=== PATIENT | male | born 1945 | race Caucasian/White ===

== ENCOUNTER 2017-08-05 09:57 | Emergency (ER) | payer MEDICARE, BC | END 2017-08-05 10:22 | disposition home or self-care (01) | LOC: SCSER 09:57 | DX: J01.90 Acute sinusitis, unspecified (principal); E78.5 Hyperlipidemia, unspecified; I10 Essential (primary) hypertension; Z79.899 Other long term (current) drug therapy | CPT/HCPCS: 99283 ==

== ENCOUNTER 2017-08-07 14:16 | Emergency (ER) | payer MEDICARE, BC ==
--- NOTE | 2017-08-07 14:59 | RAD ---
CHEST 2 VIEWS: Date: 08/07/17 HISTORY: Cough. COMPARISON: None. FINDINGS: Lungs are clear. No pneumothorax or effusion. Cardiac silhouette and mediastinal contours within norm al limits. IMPRESSION: No acute intrathoracic abnormality. POS: [facility]
[2017-08-07] MEDS ORDERED: Ibuprofen 200 MG TAB ONE (15:05)
[2017-08-07] MEDS ORDERED: Acetaminophen 500 MG TAB ONE (15:05)
== END 2017-08-07 15:45 | disposition home or self-care (01) ==
LOC: SCSER 14:16
DX: J10.1 Influenza due to other identified influenza virus with other respiratory manifestations (principal); E78.5 Hyperlipidemia, unspecified; I10 Essential (primary) hypertension
CPT/HCPCS: 71020

== ENCOUNTER 2024-02-02 08:28 | Day surgery (SDC) | payer MEDICARE, BC ==
[2024-01-28 11:58] VITALS: BMI 26.8
[2024-01-28 12:53] LABS: Hematocrit 46.7 % (38.8-50.0); Hemoglobin 16.2 g/dL (13.5-17.5); Mean Corpuscular HGB CONC 34.7 g/dL (32.0-36.0); Mean Corpuscular Hemoglobin 33.8 pg (27.0-33.0); Mean Corpuscular Volume 97.5 fL (81.2-95.1); Mean Platelet Volume 11.4 fL (7.4-10.4); Platelet Count 156 10x3/uL (150-450); RBC Distribution Width 12.5 % (11.5-14.5); Red Blood Cell (RBC) Count 4.79 10x6/uL (4.32-5.72); White Blood Cell (WBC) Count 7.5 10x3/uL (3.5-10.5)
[2024-01-28 12:59] LABS: PTT 28.8 sec (22.0-33.0)
[2024-01-28 13:58] LABS: Anion Gap 14 mmol/L (10-20); BUN (Urea Nitrogen) 20 mg/dL (8.4-25.7); Calc. Creatinine Clearance 50 mL/min (70-130); Calcium 9.8 mg/dL (7.8-10.44); Carbon Dioxide 25 mmol/L (23-31); Chloride 106 mmol/L (98-107); Estimated GFR 47; Glucose 86 mg/dL (83-110); Potassium 4.4 mmol/L (3.5-5.1); Sodium 141 mmol/L (136-145)
[2024-02-02] MEDS ORDERED: Protamine Sulfate 50 MG/5 ML VIAL ONE (10:04)
[2024-02-02] MEDS ORDERED: Heparin 10,000 UNITS/ 10 ML VIAL ONE ×2 (10:04→13:20)
[2024-02-02] MEDS ORDERED: Isoproterenol 0.2 MG/1 ML AMP ONE (10:05)
[2024-02-02] MEDS ORDERED: Heparin 25,000 units/D5W 500 ML ONE (10:05)
[2024-02-02] MEDS ORDERED: Dexamethasone 20 MG/5 ML VIAL ONE (11:29)
[2024-02-02] MEDS ORDERED: Ondansetron PF 4 MG/2 ML Vial ONE (11:29)
[2024-02-02] MEDS ORDERED: SUCCINYLCHOLINE/SOD CL,ISO/PF 200 MG/10 ML SYRINGE FS ONE (11:30)
[2024-02-02] MEDS ORDERED: PROPOFOL 20 ML ONE ×2 (11:30→12:55)
[2024-02-02] MEDS ORDERED: fentaNYL 50 mcg/mL 1 mL Vial ONE ×2 (11:30→14:24)
[2024-02-02] MEDS ORDERED: Famotidine/PF 20 mg/2ml Vial ONE (12:18)
[2024-02-02] MEDS ORDERED: Glycopyrrolate 0.2 MG/ML 5 ML SYRINGE ONE (12:57)
[2024-02-02] MEDS ORDERED: EPINEPHrine 1 MG/ML VIAL ONE (15:27)
[2024-02-02] MEDS ORDERED: Lidocaine 1% w/Epinephrine 1:100K 20 ML VIAL ONE (15:28)
== END 2024-02-02 18:55 | disposition home or self-care (01) ==
LOC: SDC 08:28
PROVIDERS: ATTEND Internal Medicine Cardiovascular Disease
PROC: 4A023FZ Measurement of Cardiac Rhythm, Percutaneous Approach (ICD-10-PCS; principal; 2024-02-02)
PROC: 02583ZZ Destruction of Conduction Mechanism, Percutaneous Approach (ICD-10-PCS; 2024-02-02)
DX: I48.0 Paroxysmal atrial fibrillation (principal); I48.4 Atypical atrial flutter; I45.10 Unspecified right bundle-branch block; I49.3 Ventricular premature depolarization; I10 Essential (primary) hypertension; E78.5 Hyperlipidemia, unspecified; Z79.01 Long term (current) use of anticoagulants; Z79.899 Other long term (current) drug therapy; Z90.89 Acquired absence of other organs
CPT/HCPCS: 80048; 85027; 85347 ×2; 85610; 85730; 93005; 93623; 93656; 93657; J1100; J1644 ×2; J2405; J2704; J2720; J3010; S0028; C1732; C1759; C1760; C1894; J0171